=== PATIENT | female | born 1985 | race American Indian/Alaskan Native ===

== ENCOUNTER 2019-02-26 16:34 | Emergency (ER) | payer OTHER ==
[2019-02-26] MEDS ORDERED: FIORICET PO ONE (17:56)
[2019-02-26] MEDS ORDERED: SOLU-Medrol IV ONE (17:56)
[2019-02-26] MEDS ORDERED: REGLAN IV ONE (17:56)
[2019-02-26] MEDS ORDERED: BENADRYL IV ONE (17:56)
[2019-02-26] MEDS ORDERED: XYLOCAINE TOPICAL 4% TP ONE (17:56)
[2019-02-26] MEDS ORDERED: MAGNESIUM SULFATE 2GM/50ML 2 GM/50 ML BAG IV ONE (17:56)
--- NOTE | 2019-02-26 17:58 | Emergency Department Report ---
ED General Adult HPI - General Chief complaint: Headache Stated complaint: HEADACHE Time Seen by Provider: 02/26/19 17:46 Source: patient, EMS (ems notes not available at time of chart dictation), RN notes reviewed Mode of arrival: Stretcher Limitations: No Limitations - History of Present Illness Initial comments: This is a 33-year-old female. The patient is not known to this provider previously. The patient reports a past medical history of migraines. Patient also reports that she is not , and that she has not delivered a given within the past 6-8 weeks. The patient presents to the emergency room with a complaint of headache. The headache started last night. The headache is occipital and frontal. The headache is intermittent over the past 24 hours. The headache is not sudden or thunderclap in nature. The headache did not reach maximal intensity within the first 24 hours. There is mild nausea, but there is no vomiting. No fevers, no neck stiffness, no sore throat. The headache is similar to prior headaches, although more intense. No relief with [id number] intervention. Further review of systems, patient endorses being on her cell phone at least 45 hours per day. She does consume caffeinated beverages, and she reports 6-8 hours of sleep on a daily basis. She makes no complaint of extremity weakness, chest pain, abdominal pain, shortness of breath or urinary symptoms. In the emergency room, she was treated with a multifaceted approach for headache, including intranasal lidocaine administration, Reglan, Benadryl,magnesium sulfate, steroids, and these apparently completely resolved her pain at this time. She is now sleeping comfortably in the stretcher and in no acute distress. when we wake her up to reassess her, she walks with a steady gait, and is in no acute distress. -: Gradual Location: head Radiation: non-radiation Quality: aching Consistency: intermittent Improves with: other Worsens with: other - Related Data Previous Rx's Medication Instructions Recorded Last Taken Type Butalb/Acetaminophen/Caffeine 1 cap PO Q6HR PRN #15 cap 02/26/19 Unknown Rx [Fioricet 50-300-40 mg CAP] Ibuprofen [Motrin] 600 mg PO Q8H PRN #30 tablet 02/26/19 Unknown Rx Metoclopramide [Reglan] 10 mg PO QID PRN #30 tablet 02/26/19 Unknown Rx Allergies Allergy/AdvReac Type Severity Reaction Status Date / Time No Known Allergies Allergy Unverified 02/26/19 16:49 ED Review of Systems ROS: Stated complaint: HEADACHE Other details as noted in HPI Constitutional: malaise. denies: fever Eyes: denies: eye discharge, vision change ENT: denies: epistaxis Respiratory: denies: cough Cardiovascular: denies: chest pain Gastrointestinal: nausea. denies: abdominal pain Genitourinary: denies: dysuria Skin: denies: lesions Neurological: headache, weakness Psychiatric: anxiety ED Past Medical Hx - Past Medical History Hx Headaches / Migraines: Yes - Surgical History Past Surgical History?: No - Social History Smoking Status: Current Every Day Smoker Substance Use Type: None - Medications Home Medications: Home Medications Medication Instructions Recorded Confirmed Last Taken Type Butalb/Acetaminophen/Caffeine 1 cap PO Q6HR PRN #15 cap 02/26/19 Unknown Rx [Fioricet 50-300-40 mg CAP] Ibuprofen [Motrin] 600 mg PO Q8H PRN #30 tablet 02/26/19 Unknown Rx Metoclopramide [Reglan] 10 mg PO QID PRN #30 tablet 02/26/19 Unknown Rx ED Physical Exam - General Limitations: No Limitations General appearance: alert, anxious, in distress, obese - Head Head exam: Present: atraumatic, normocephalic - Eye Eye exam: Present: normal appearance, PERRL, EOMI. Absent: nystagmus - ENT ENT exam: Present: normal exam, normal orophraynx, mucous membranes moist, normal external ear exam - Neck Neck exam: Present: normal inspection, full ROM. Absent: tenderness, mening ismus - Respiratory Respiratory exam: Present: normal lung sounds bilaterally. Absent: respiratory distress - Cardiovascular Cardiovascular Exam: Present: regular rate, normal rhythm, normal heart sounds. Absent: bradycardia, tachycardia, irregular rhythm, systolic murmur, diastolic murmur, rubs, gallop - GI/Abdominal GI/Abdominal exam: Present: soft. Absent: distended, tenderness, guarding, rebound, rigid, pulsatile mass - Extremities Exam Extremities exam: Present: normal inspection, full ROM, other (2+ pulses noted in the bilateral upper, lower extremities. Compartments soft. No long bony tenderness. The pelvis is stable.). Absent: pedal edema, joint swelling, calf tenderness - Back Exam Back exam: Present: normal inspection, full ROM. Absent: tenderness, CVA tenderness (R), CVA tenderness (L), paraspinal tenderness, vertebral tenderness - Neurological Exam Neurological exam: Present: alert, oriented X3, normal gait, other (Extraocular movements intact. Tongue midline. No facial droop. Facial sensation intact to light touch in the V1, V2, V3 distribution bilaterally. 5 and 5 strength in 4 extremities.. Sensation is intact to light touch in 4 extremities.). Absent: motor sensory deficit - Psychiatric Psychiatric exam: Present: anxious - Skin Skin exam: Present: warm, dry, intact, normal color. Absent: rash ED Course Vital Signs 02/26/19 02/26/19 02/26/19 16:39 16:44 16:46 Temperature 98.1 F Pulse Rate 68 Respiratory 18 Rate Blood Pressure 162/72 162/72 O2 Sat by Pulse 100 100 99 Oximetry 02/26/19 02/26/19 02/26/19 17:01 18:24 18:30 Temperature Pulse Rate 70 71 Respiratory 24 19 Rate Blood Pressure 168/92 168/92 168/92 O2 Sat by Pulse 99 Oximetry 02/26/19 02/26/19 02/26/19 18:46 19:00 19:15 Temperature Pulse Rate Respiratory 27 H 24 28 H Rate Blood Pressure 168/92 168/92 168/92 O2 Sat by Pulse 98 99 99 Oximetry 02/26/19 02/26/19 02/26/19 19:31 19:53 20:01 Temperature Pulse Rate 90 88 Respiratory 21 21 Rate Blood Pressure 168/92 168/92 168/92 O2 Sat by Pulse 99 Oximetry 02/26/19 02/26/19 02/26/19 20:15 20:31 20:45 Temperature Pulse Rate 83 92 H 88 Respiratory 29 H 24 25 H Rate Blood Pressure 168/92 168/92 139/65 O2 Sat by Pulse 98 Oximetry 02/26/19 02/26/19 02/26/19 21:01 21:15 21:31 Temperature Pulse Rate 89 83 Respiratory 26 H 24 Rate Blood Pressure 136/74 136/74 136/74 O2 Sat by Pulse 100 100 97 Oximetry 02/26/19 23:05 Temperature 98.8 F Pulse Rate Respiratory Rate Blood Pressure O2 Sat by Pulse Oximetry ED Medical Decision Making - Lab Data Result diagrams: 02/26/19 18:13 02/26/19 18:13 Vital Signs 02/26/19 02/26/19 02/26/19 16:39 16:44 16:46 Temperature 98.1 F Pulse Rate 68 Respiratory 18 Rate Blood Pressure 162/72 162/72 O2 Sat by Pulse 100 100 99 Oximetry 02/26/19 02/26/19 02/26/19 17:01 18:24 18:30 Temperature Pulse Rate 70 71 Respiratory 24 19 Rate Blood Pressure 168/92 168/92 168/92 O2 Sat by Pulse 99 Oximetry 02/26/19 02/26/19 02/26/19 18:46 19:00 19:15 Temperature Pulse Rate Respiratory 27 H 24 28 H Rate Blood Pressure 168/92 168/92 168/92 O2 Sat by Pulse 98 99 99 Oximetry 02/26/19 02/26/19 02/26/19 19:31 19:53 20:01 Temperature Pulse Rate 90 88 Respiratory 21 21 Rate Blood Pressure 168/92 168/92 168/92 O2 Sat by Pulse 99 Oximetry 02/26/19 02/26/19 02/26/19 20:15 20:31 20:45 Temperature Pulse Rate 83 92 H 88 Respiratory 29 H 24 25 H Rate Blood Pressure 168/92 168/92 139/65 O2 Sat by Pulse 98 Oximetry 02/26/19 02/26/19 02/26/19 21:01 21:15 21:31 Temperature Pulse Rate 89 83 Respiratory 26 H 24 Rate Blood Pressure 136/74 136/74 136/74 O2 Sat by Pulse 100 100 97 Oximetry 02/26/19 23:05 Temperature 98.8 F Pulse Rate Respiratory Rate Blood Pressure O2 Sat by Pulse Oximetry Lab Results 02/26/19 02/26/19 02/26/19 Range/Units 18:13 18:13 18:13 WBC 9.6 (4.5-11.0) K/mm3 RBC 4.07 (3.65-5.03) M/mm3 Hgb 13.7 (10.1-14.3) gm/dl Hct 40.0 (30.3-42.9) % MCV 98 H (79-97) fl MCH 34 H (28-32) pg MCHC 34 (30-34) % RDW 13.8 (13.2-15.2) % Plt Count 159 (140-440) K/mm3 PT 15.5 H (12.2-14.9) Sec. INR 1.16 H (0.87-1.13) APTT 27.2 (24.2-36.6) Sec. Sodium 138 (137-145) mmol/L Potassium 3.3 L (3.6-5.0) mmol/L Chloride 100.3 (98-107) mmol/L Carbon Dioxide 24 (22-30) mmol/L Anion Gap 17 mmol/L BUN 12 (7-17) mg/dL Creatinine 0.9 (0.7-1.2) mg/dL Estimated GFR > 60 ml/min BUN/Creatinine Ratio 13 % Glucose 108 H (65-100) mg/dL Calcium 9.4 (8.4-10.2) mg/dL Magnesium (1.7-2.3) mg/dL Total Bilirubin 0.30 (0.1-1.2) mg/dL AST 17 (5-40) units/L ALT 17 (7-56) units/L Alkaline Phosphatase 60 (35-129) units/L Total Creatine Kinase (30-135) units/L Total Protein 7.9 (6.3-8.2) g/dL Albumin 4.5 (3.9-5) g/dL Albumin/Globulin Ratio 1.3 % HCG, Quant (0-4) mIU/mL 02/26/19 02/26/19 02/26/19 Range/Units 18:13 18:13 18:13 WBC (4.5-11.0) K/mm3 RBC (3.65-5.03) M/mm3 Hgb (10.1-14.3) gm/dl Hct (30.3-42.9) % MCV (79-97) fl MCH (28-32) pg MCHC (30-34) % RDW (13.2-15.2) % Plt Count (140-440) K/mm3 PT (12.2-14.9) Sec. INR (0.87-1.13) APTT (24.2-36.6) Sec. Sodium (137-145) mmol/L Potassium (3.6-5.0) mmol/L Chloride (98-107) mmol/L Carbon Dioxide (22-30) mmol/L Anion Gap mmol/L BUN (7-17) mg/dL Creatinine (0.7-1.2) mg/dL Estimated GFR ml/min BUN/Creatinine Ratio % Glucose (65-100) mg/dL Calcium (8.4-10.2) mg/dL Magnesium 1.90 (1.7-2.3) mg/dL Total Bilirubin (0.1-1.2) mg/dL AST (5-40) units/L ALT (7-56) units/L Alkaline Phosphatase (35-129) units/L Total Creatine Kinase 97 (30-135) units/L Total Protein (6.3-8.2) g/dL Albumin (3.9-5) g/dL Albumin/Globulin Ratio % HCG, Quant < 2 (0-4) mIU/mL - Radiology Data Radiology results: report reviewed, image reviewed Noncontrast CT scan of the brain is negative for acute disease - Medical Decision Making Differential diagnosis, including not limited to: Migraine headache, tension headache, cluster headache, headache; etiology not otherwise specified Assessment and plan: A 33-year-old female with headache. Initially hypertensive but blood pressure improved with appropriate intervention. Walking with a steady gait and has a nonfocal neurologic examination. History not suggestive of subarachnoid hemorrhage, carbon monoxide toxicity, or meningitis. Patient is observed in the emergency room for a prolonged period of time without clinical decompensation. On multiple re-evaluations, the patient is noted to be sleeping comfortably, in her stretcher, and in no acute distress. The patient is medically suitable for discharge at this point in time with outpatient follow-up Critical care attestation.: If time is entered above; I have spent that time in minutes in the direct care of this critically ill patient, excluding procedure time. ED Disposition Clinical Impression: Headache Disposition: DC-01 TO HOME OR SELFCARE Is pt being admited?: No Does the pt Need Aspirin: No Condition: Stable Instructions: Acute Headache (ED) Additional Instructions: Take the pain medication as needed/directed. Follow up with her primary care doctor or neurology specialist within the next 7-10 days. Minimize utilization of cellular phone. minimize exposure to television and tablets. Make certain to get 6-8 hours of good quality uninterrupted sleep on a nightly basis. Please make certain to follow-up with a primary care doctor within the recommended timeframe. Patient was found to have hypertension, elevated blood pressure in the emergency room. Long-term complications of hypertension includes stroke, disability, paralysis, loss of quality of life. Patient may also follow-up with any of the listed neurology specialist. Please return to the emergency room right away with new, worsening or different symptoms, or symptoms not present on the initial ER evaluation. Referrals: OLIVIER DANG MD [Referring] - 3-5 Days JANELLE PASTRANA MD [Staff Physician] - 3-5 Days RENETTA KIRKPATRICK MD [Staff Physician] - 3-5 Days
[2019-02-26] MEDS ORDERED: NACL 0.9% 1000 ML 1,000 ML ONE (18:06)
[2019-02-26 18:26] LABS: Hemoglobin 13.7 gm/dl (10.1-14.3); Mean Corpuscular HGB Conc 34 % (30-34); Mean Corpuscular Volume 98 fl (79-97); Platelet Count 159 K/mm3 (140-440); Red Blood Count 4.07 M/mm3 (3.65-5.03); Red Cell Distribution Width 13.8 % (13.2-15.2)
[2019-02-26 18:37] LABS: INR 1.16 (0.87-1.13)
[2019-02-26 18:38] LABS: Partial Thromboplastin Time 27.2 Sec. (24.2-36.6)
[2019-02-26 18:42] LABS: Alanine Aminotransferase 17 units/L (7-56); Albumin 4.5 g/dL (3.9-5); BUN/Creatinine Ratio 13; Blood Urea Nitrogen 12 mg/dL (7-17); Calcium 9.4 mg/dL (8.4-10.2); Hemolysis Index 24
[2019-02-26] MEDS ORDERED: K-DUR PO ONE (19:16)
--- NOTE | 2019-02-26 20:59 | Cat Scan Report ---
PROCEDURE: CT HEAD/BRAIN WO CON TECHNIQUE: CT head without contrast HISTORY: headache COMPARISONS: FINDINGS: No acute intra or extra-axial hemorrhage identified. No evidence for midline shift or mass effect. Ve ntricles and sulci are within normal limits. Bony calvarium is intact. Visualized mastoids and paranasal sinuses are unremarkable. IMPRESSION: Negative CT head. This document is electronically signed by Zeke Diego MD., Feb 26 2019 08:57:59 PM ET
[2019-02-26 23:05] VITALS: BP 136/74
[2019-02-27] MEDS ORDERED: XYLOCAINE TOPICAL 4% TP ONE (01:08)
[2019-02-27] MEDS ORDERED: K-DUR PO ONE ×2 (01:09→01:49)
== END 2019-02-27 02:03 | disposition home or self-care (01) ==
LOC: ED 16:34
DX: R51 Headache (principal); F17.200 Nicotine dependence, unspecified, uncomplicated; G43.909 Migraine, unspecified, not intractable, without status migrainosus
CPT/HCPCS: 36415; 70450; 80053; 82550; 83735; 84702; 85027; 85610; 85730; 96365; 96375; 99285; J1200; J2765; J2930; J3475; J7030